=== PATIENT | female | born 1955 | race Caucasian/White ===

== ENCOUNTER 2018-06-07 10:09 | Emergency (ER) | payer OTHER ==
[~2018-06-07] VITALS: Ht 149.9 cm; Wt 51.0 kg
[2018-06-07 10:13] VITALS: Ht 149.9 cm; Wt 51.0 kg
--- NOTE | 2018-06-07 11:57 | ERD ---
ER Documentation Chief Complaint Chief Complaint right thumb pain/swelling x 3 days HPI 62-year-old female, presents the emergency department, complaining of 3 days with right thumb distal pain and swelling. The pain is dull, 3 out of 10. No history of trauma, no history of insect bite. She denies fevers, no chills, no local warmth, rashes or fluctuance. The patient has a past medical history of hypertension and she did not take her medications today, she denies headache, blurred vision, no chest pain, no dizziness. ROS All systems reviewed and are negative except as per history of present illness. Medications Home Meds Active Scripts Ibuprofen* (Motrin*) 400 Mg Tab, 400 MG PO Q8, #12 TAB Prov:LAZ CARBAJAL MD 06/07/18 Cephalexin* (Keflex*) 500 Mg Capsule, 500 MG PO BID for 7 Days, CAP Prov:LAZ CARBAAJL MD 06/07/18 Reported Medications [None] No Conflict Check 09/16/15 Allergies Allergies: Coded Allergies: No Known Allergy (Unverified , 09/16/15) PMhx/Soc History of Surgery: Yes () Anesthesia Reaction: No Hx Neurological Disorder: No Hx Respiratory Disorders: No Hx Cardiac Disorders: No Hx Psychiatric Problems: No Hx Miscellaneous Medical Probl: No Hx Alcohol Use: No Hx Substance Use: No Hx Tobacco Use: Yes Physical Exam Vitals Vital Signs Date Temp Pulse Resp B/P (MAP) Pulse Ox O2 O2 Flow FiO2 Time Delivery Rate 06/07/18 98.2 58 20 200/85 98 Room Air 13:04 (123) 06/07/18 96.2 60 19 176/77 99 10:13 (110) Physical Exam Const: No acute distress Head: Atraumatic Eyes: Normal Conjunctiva ENT: Normal External Ears, Nose and Mouth. Neck: Full range of motion. No meningismus. Resp: Clear to auscultation bilaterally Cardio: Regular rate and rhythm, no murmurs Abd: Soft, non tender, non distended. Normal bowel sounds Skin: No petechiae or rashes Back: No midline or flank tenderness Ext: Right thumb with edema of the distal phalanx, but no erythema, no warmth, no fluctuance. Neur: Awake and alert Psych: Normal Mood and Affect Procedures/MDM Differential diagnosis considered include but not limited are: phalen, cellulitis, paronychia, sprain/strain, ligament injury, fracture, dislocation, low suspicion for acute infectious process. Soft compartments, neurovascular exam grossly intact. Physical examination and clinical presentation consistent with superficial skin infection. Also the patient has history of hypertension, she did not take medications today. During the ED course the patient remained hemodynamically stable and asymptomatic. Results and clinical impression discussed with patient who agrees with management. The patient is stable to be treated outpatient and will be discharged home with recommendations for antibiotics, antibiotics, ice, rest, NSAIDs 3 times daily for 5 days and close monitoring. The patient was instructed to follow up with the primary care provider in the next 48h. If symptoms persist, worsen or new symptoms develop, then patient should return to the ED immediately. Instructions explained and given to patient with acknowledgment and demonstrated understanding. Disclaimer: Inadvertent spelling and grammatical errors are likely due to EHR/dictation software use and do not reflect on the overall quality of patient care. Also, please note that the electronic time recorded on this note does not necessarily reflect the actual time of the patient encounter. Departure Diagnosis: Primary Impression: Pain of right thumb Condition: Stable Additional Instructions: Thank you very much for allowing us to participate in your care. Your health and safety is our top priority at [facility]. Call your primary care doctor TOMORROW for an appointment during the next 2-4 days and bring all the information and medications prescribed. Have prescriptions filled and follow precisely the directions on the label. If the symptoms get worse and your provider is unavailable, return to the Emergency Department immediately. LAZ CARBAJAL MD Jun 07, 2018 11:57
[2018-06-07] MEDS ORDERED: IBUP-1561 PO (12:47)
[2018-06-07] MEDS ORDERED: CEPH-443 PO (12:47)
[2018-06-07 13:04] VITALS: BP 200/85; PULSE 58; RESP 20
== END 2018-06-07 13:03 | disposition home or self-care (01) ==
LOC: FTE 10:09
DX: M79.644 Pain in right finger(s) (principal); Z87.891 Personal history of nicotine dependence
CPT/HCPCS: 73140; Z7502